=== PATIENT | male | born 1990 | race Caucasian/White ===

== ENCOUNTER 2022-07-09 01:43 | Emergency (ER) | payer OTHER ==
[~2022-07-09] VITALS: Ht 167.6 cm; Wt 59.0 kg
[2022-07-09 01:43] VITALS: BP 118/78
--- NOTE | 2022-07-09 01:43 | NUR ---
PT TO CHAIR WITH KEVEN
--- NOTE | 2022-07-09 01:49 | NUR ---
Dr. Mclean examining patient.
[2022-07-09 01:53] VITALS: BP 118/78
--- NOTE | 2022-07-09 01:53 | NUR ---
Patient D/C to custody.
== END 2022-07-09 01:53 ==
LOC: MED 01:43
DX: V49.88XA Car occupant (driver) (passenger) injured in other specified transport accidents, initial encounter; Y93.89 Activity, other specified; Y92.89 Other specified places as the place of occurrence of the external cause; Y99.8 Other external cause status
CPT/HCPCS: 99283